=== PATIENT | female | born 1990 | race Caucasian/White ===

== ENCOUNTER 2016-12-22 02:59 | Emergency (ER) | payer SELFPAY ==
[~2016-12-22] VITALS: Ht 152.4 cm; Wt 90.7 kg
[2016-12-22 03:12] VITALS: BP 136/95
[2016-12-22] MEDS ORDERED: IBUP-1007 PO (03:22)
[2016-12-22] MEDS ORDERED: AZIT250T PO (03:22)
--- NOTE | 2016-12-22 03:22 | PHYS DOC ---
Past Medical History Past Medical History: GERD Past Surgical History: No Surgical History Alcohol Use: None Drug Use: None Adult General Chief Complaint Chief Complaint: EARACHE/EAR PAIN HPI HPI Patient is a 26 year old female who presents here today complaining of left ear pain 1-2 days with a sore throat. Patient denies any fevers. Patient complains of sore throat runny nose cough and congestion. Review of Systems Review of Systems Constitutional: Denies fever or chills [] Eyes: Denies change in visual acuity, redness, or eye pain [] All other systems were reviewed and found to be within normal limits, except as documented in this note. Physical Exam Physical Exam Constitutional: Well developed, well nourished, no acute distress, non-toxic appearance. [] HENT: Normocephalic, atraumatic, bilateral external ears normal, oropharynx moist, no oral exudates, nose normal. [] Eyes: PERRLA, EOMI, conjunctiva normal, no discharge. [] Neck: Normal range of motion, no tenderness, supple, no stridor. [] Cardiovascular:Heart rate regular rhythm, no murmur [] Lungs & Thorax: Bilateral breath sounds clear to auscultation [] Abdomen: Bowel sounds normal, soft, no tenderness, no masses, no pulsatile masses. [] Skin: Warm, dry, no erythema, no rash. [] Back: No tenderness, no CVA tenderness. [] Extremities: No tenderness, no cyanosis, no clubbing, ROM intact, no edema. [] Neurologic: Alert and oriented X 3, normal motor function, normal sensory function, no focal deficits noted. [] Psychologic: Affect normal, judgement normal, mood normal. [] Left TM is erythematous with bulging of the tympanic membrane. No discharge in the external ear canal. Current Patient Data Vital Signs Vital Signs Date Time Temp Pulse Resp B/P (MAP) Pulse Ox O2 Delivery O2 Flow Rate FiO2 12/22/16 03:12 98.7 99 22 97 Room Air 98.7 EKG EKG [] Radiology/Procedures Radiology/Procedures [] Course & Med Decision Making Course & Med Decision Making Pertinent Labs and Imaging studies reviewed. (See chart for details) []26-year-old female who presents here today complaining of left ear pain. Patient's physical exam is consistent with a left otitis media. Patient will be discharged home on Zithromax and ibuprofen assist her with the pain. Dragon Disclaimer Dragon Disclaimer This electronic medical record was generated, in whole or in part, using a voice recognition dictation system. Departure Departure Impression: Primary Impression: Left otitis media Disposition: 01 HOME, SELF-CARE Condition: IMPROVED Referrals: DENNIS RAMOS MD (PCP) Patient Instructions: Otitis Media, Adult Scripts Azithromycin (ZITHROMAX) 250 Mg Tablet 1 PKG PO UD, #6 TAB Prov: JORDYN FLOR MD 12/22/16 Ibuprofen (IBUPROFEN) 600 Mg Tablet 600 MG PO PRN Q6HRS Y for PAIN, #20 TAB Prov: JORDYN FLOR MD 12/22/16 JORDYN FLOR MD Dec 22, 2016 03:22
[2016-12-22] MEDS ORDERED: AZITHROMYCIN 250 MG TABLET. PO ONE (03:30)
[2016-12-22] MEDS ORDERED: traMADol 50 MG TABLET PO ONE (03:30)
[2016-12-22] MEDS ORDERED: AZITHROMYCIN 250 MG TABLET. ONE (03:33)
[2016-12-22] MEDS ORDERED: traMADol 50 MG TABLET ONE (03:33)
== END 2016-12-22 03:37 | disposition home or self-care (01) ==
LOC: ER 02:59
DX: H66.92 Otitis media, unspecified, left ear (principal); K21.9 Gastro-esophageal reflux disease without esophagitis
CPT/HCPCS: 99283; Q0144